=== PATIENT | female | born 1990 | race Caucasian/White ===

== ENCOUNTER 2018-10-15 21:46 | Emergency (ER) | payer OTHER ==
[~2018-10-15] VITALS: Ht 162.6 cm; Wt 56.2 kg
[2018-10-15 21:46] VITALS: BP 171/97
--- NOTE | 2018-10-15 21:46 | NUR ---
pt biba to bed 11, placed on full monitor, report to Latricia FISHMAN
[2018-10-15] MEDS ORDERED: ENALAPRILAT 2.5 MG/2 ML VIAL IVP ONE ×2 (22:00→23:20)
--- NOTE | 2018-10-15 22:02 | NUR ---
Pt BIBA TO ED FOR EVALUATION OF SYNCOPE, ABDOMINAL PAIN WITH N/V. PT ALSO STATED HAD FEVER AT HOME AND CHILLS. AAO X4, GCS 15, ABLE TO SPEAK WITH FULL COMPLETE SENTENCES. PUPILS PERRLA 3/3 MM. RESPIRATIONS EVEN AND UNLABORED, BL LUNGC. SKIN COOL AND DRY, PT STATED COLD, KEEP WARM. ABDOMEN SOFT, NON DISTENDED, ACTIVE BOWEL SOUND X4. VS, BP ELEVATED. DR. HUGGINS MADE AWARE OF PT STATUS. WILL CONTIINUE TO MONITOR
[2018-10-15 22:30] LABS: BASOPHILS % (AUTO) 0.4 % (0.0-2.0); EOSINOPHILS # (AUTO) 0.1 K/uL (0-0.4); EOSINOPHILS % (AUTO) 0.9 % (0.0-4.0); HEMATOCRIT 40.9 % (36-48); HEMOGLOBIN 13.6 g/dL (12.0-16.0); LYMPHOCYTES # (AUTO) 2.6 K/uL (2.5-16.5); LYMPHOCYTES % (AUTO) 29.9 % (20.5-51.1); MEAN CORPUSCULAR HEMOGLOBIN 30 pg (27-31); MEAN CORPUSCULAR HGB CONC 33 g/dL (33-37); MEAN CORPUSCULAR VOLUME 90.7 fL (80-94); MONOCYTES # (AUTO) 0.3 K/uL (0.8-1.0); MONOCYTES % (AUTO) 3.6 % (1.7-9.3); NEUTROPHILS # (AUTO) 5.6 K/uL (1.8-7.7); NEUTROPHILS % (AUTO) 65.2 % (42.2-75.2); PLATELET COUNT (AUTO) 270 K/uL (140-450); RED BLOOD CELL COUNT(AUTO) 4.51 MIL/uL (4.20-5.40); RED CELL DISTRIBUTION WIDTH 12.7 % (11.6-13.7); WHITE BLOOD COUNT (AUTO) 8.6 K/uL (4.8-10.8)
[2018-10-15 22:41] LABS: ANION GAP 10.9 (8-16); CARBON DIOXIDE 27.9 mmol/L (21-32); CREATININE 0.7 mg/dL (0.6-1.3); POTASSIUM 3.8 mmol/L (3.5-5.1)
[2018-10-15 22:45] LABS: ALBUMIN 3.9 g/dL (3.4-5.0); CHOL/HDL RATIO 2.8 (1-4.5); TOTAL BILIRUBIN 0.6 mg/dL (0.0-1.0)
--- NOTE | 2018-10-15 23:12 | NUR ---
BP 142/[address] HUGGINS MADE AWARE; HOLD ENALAPRIL IVP UNTIL FURTHER ORDER. WILL CONTINUE TO MONITOR
[2018-10-15] MEDS ORDERED: MORPHINE SULFATE 4 MG/ML SYR IVP ONE (23:20)
[2018-10-15] MEDS ORDERED: NACL 0.9% 1,000 ML IV ONE (23:20)
[2018-10-15] MEDS ORDERED: ONDANSETRON 4 MG/2 ML VIAL IVP ONE (23:20)
--- NOTE | 2018-10-15 23:44 | NUR ---
PT HAVING SYNCOPAL EPISODE AND BRADYCARDIA 40-45 B/M, BP 118/71. PALE AND COOL SKIN. DR. HUGGINS MADE AWARE. CRASH CART STAND BY AT BEDSIDE. WILL CONTINUE TO MONITOR
--- NOTE | 2018-10-15 23:50 | NUR ---
HR 60-70 B/M, BP 110/71, O2 SAT 98% RA. PT AAO X4, GCS 15 AT THIS TIME. RESPIATIONS EVEN AND UNLABORED. DENIES PAIN AT THIS TIME. WILL CONTINUE TO MONITOR
--- NOTE | 2018-10-16 01:45 | NUR ---
Patient discharged with v/s stable. Written and verbal after care instructions given and explained. Patient alert, oriented and verbalized understanding of instructions. Ambulatory with steady gait. All questions addressed prior to discharge. ID band removed. Patient advised to follow up with PMD. Rx of lisinopril 20 mg, methimazole 10 mg given. Patient educated on indication of medication including possible reaction and side effects. Opportunity to ask questions provided and answered.
[2018-10-16 01:47] VITALS: BP 116/76
== END 2018-10-15 23:15 | disposition home or self-care (01) ==
LOC: MED 21:46
DX: I10 Essential (primary) hypertension (principal); E05.90 Thyrotoxicosis, unspecified without thyrotoxic crisis or storm; J45.909 Unspecified asthma, uncomplicated
CPT/HCPCS: 36415; 71045; 80053; 80061; 81002; 81025; 82550; 82553; 83880; 84484; 85025; 85379; 93005; 96374; 96375; 99284; J2270; J2405; J3490; J7030; Q0092

== ENCOUNTER 2019-06-20 02:16 | Emergency (ER) | payer OTHER ==
[~2019-06-20] VITALS: Ht 162.6 cm; Wt 61.7 kg
[2019-06-20 02:24] VITALS: BP 130/102
[2019-06-20 03:02] LABS: BASOPHILS % (AUTO) 0.3 % (0.0-2.0); EOSINOPHILS # (AUTO) 0.1 K/uL (0-0.4); EOSINOPHILS % (AUTO) 1.4 % (0.0-4.0); HEMATOCRIT 34.3 % (36-48); HEMOGLOBIN 11.6 g/dL (12.0-16.0); LYMPHOCYTES # (AUTO) 4.1 K/uL (2.5-16.5); LYMPHOCYTES % (AUTO) 39.3 % (20.5-51.1); MEAN CORPUSCULAR HEMOGLOBIN 31 pg (27-31); MEAN CORPUSCULAR HGB CONC 34 g/dL (33-37); MEAN CORPUSCULAR VOLUME 91.5 fL (80-94); MONOCYTES # (AUTO) 0.7 K/uL (0.8-1.0); NEUTROPHILS # (AUTO) 5.4 K/uL (1.8-7.7); PLATELET COUNT (AUTO) 234 K/uL (140-450); RED BLOOD CELL COUNT(AUTO) 3.74 MIL/uL (4.20-5.40); RED CELL DISTRIBUTION WIDTH 12.7 % (11.6-13.7); WHITE BLOOD COUNT (AUTO) 10.3 K/uL (4.8-10.8)
[2019-06-20 03:10] LABS: ANION GAP 10.3 (8-16); CARBON DIOXIDE 29.5 mmol/L (21-32); CREATININE 0.7 mg/dL (0.6-1.3); POTASSIUM 3.8 mmol/L (3.5-5.1)
[2019-06-20 03:15] LABS: ALBUMIN 3.6 g/dL (3.4-5.0); TOTAL BILIRUBIN 0.4 mg/dL (0.0-1.0)
[2019-06-20 03:39] LABS: APPEARANCE,URINE CLEAR (CLEAR); BILIRUBIN,URINE NEGATIVE (NEGATIVE); BLOOD, URINE NEGATIVE (NEGATIVE); COLOR,URINE YELLOW (YELLOW); LEUKOCYTE ESTERASE ,URINE NEGATIVE (NEGATIVE); NITRITE, URINE NEGATIVE (NEGATIVE); UGLUCOSE NEGATIVE (NEGATIVE)
[2019-06-20 05:37] VITALS: BP 126/84
== END 2019-06-20 05:37 | disposition home or self-care (01) ==
LOC: MED 02:16
DX: R10.30 Lower abdominal pain, unspecified (principal); R14.0 Abdominal distension (gaseous); K59.00 Constipation, unspecified; I10 Essential (primary) hypertension; J45.909 Unspecified asthma, uncomplicated; Z86.39 Personal history of other endocrine, nutritional and metabolic disease
CPT/HCPCS: 36415; 80053; 81003; 83690; 84703; 85025; 99283